=== PATIENT | female | born 1960 | race Caucasian/White ===

== ENCOUNTER → 2024-01-18 07:42 | Outpatient (REF) | payer OTHER, SELFPAY | LOC: HWRAD 07:42 | PROVIDERS: ATTENDING PHYSICIAN Obstetrics & Gynecology; FAMILY PHYSICIAN Family Medicine | DX: Z12.31 Encounter for screening mammogram for malignant neoplasm of breast (principal); Z78.0 Asymptomatic menopausal state | CPT/HCPCS: 77063; 77067; 77080 ==

== ENCOUNTER → 2025-02-22 06:35 | Outpatient (REF) | payer OTHER, MEDICARE, SELFPAY | LOC: WDC 06:35 | PROVIDERS: ATTENDING PHYSICIAN Obstetrics & Gynecology; FAMILY PHYSICIAN Family Medicine | DX: Z12.31 Encounter for screening mammogram for malignant neoplasm of breast (principal) | CPT/HCPCS: 77063; 77067 ==